=== PATIENT | female | born 2000 | race Caucasian/White ===

== ENCOUNTER 2021-04-07 11:26 | Inpatient (IN) | payer OTHER ==
[~2021-04-07] VITALS: Ht 172.7 cm; Wt 67.3 kg
[~2021-04-07 11:26] MED LIST: NO TOMA MED.
== END 2021-04-13 09:28 | disposition home or self-care (01) | DRG 153 ==
LOC: EMR PED 11:26 → OB/GYN 19:11 → PED 04-09 10:48
PROVIDERS: ADMIT Emergency Medicine Pediatric Emergency Medicine; ATTEND Emergency Medicine Pediatric Emergency Medicine
DX: J03.80 Acute tonsillitis due to other specified organisms (principal); E87.1 Hypo-osmolality and hyponatremia; L04.0 Acute lymphadenitis of face, head and neck; R79.82 Elevated C-reactive protein (CRP); B27.90 Infectious mononucleosis, unspecified without complication; R63.0 Anorexia; E86.0 Dehydration; Z20.822 Contact with and (suspected) exposure to COVID-19
CPT/HCPCS: 70498